=== PATIENT | male | born 1975 | race Caucasian/White ===

== ENCOUNTER 2021-02-16 09:33 | Emergency (ER) | payer OTHER ==
--- NOTE | 2021-02-16 11:05 | EDM.PDOC ---
ED HPI GENERAL MEDICAL PROBLEM - General Chief Complaint: Lower Extremity Injury/Pain Stated Complaint: RT KNEE PAIN Time Seen by Provider: 02/16/21 10:50 Source of Information: Reports: Patient History Limitations: Reports: No Limitations - History of Present Illness INITIAL COMMENTS - FREE TEXT/NARRATIVE: 45 yo male with a remote hx of a R knee meniscal tear slipped at work on Sunday and now can't straight that knee fully due to swelling. Not able to work today so came to the ER. Does not have a primary care provider. Onset: Gradual Onset Date: 02/14/21 Duration: Day(s): (2), Getting Worse Location: Reports: Lower Extremity, Right Quality: Reports: Ache Severity: Moderate Improves with: Reports: Rest Worsens with: Reports: Movement (walking) Context: Reports: Trauma (see HPI) Associated Symptoms: Reports: No Other Symptoms - Related Data Allergies Allergy/AdvReac Type Severity Reaction Status Date / Time No Known Allergies Allergy Verified 02/16/21 10:32 Home Meds: Home Meds NK [No Known Home Meds] 02/16/21 [History] Past Medical History Musculoskeletal History: Reports: Arthritis - Infectious Disease History Infectious Disease History: Reports: None - Past Surgical History Head Surgeries/Procedures: Reports: None Musculoskeletal Surgical History: Reports: None Dermatological Surgical History: Reports: None Social & Family History - Tobacco Use Tobacco Use Status *Q: Current Every Day Tobacco User Years of Tobacco use: 25 Packs/Tins Daily: 0.5 Used Tobacco, but Quit: No Second Hand Smoke Exposure: No - Caffeine Use Caffeine Use: Reports: Coffee - Recreational Drug Use Recreational Drug Use: No Review of Systems - Review of Systems Review Of Systems: See Below Constitutional: Reports: No Symptoms Musculoskeletal: Reports: Joint Pain (R knee), Joint Swelling (R knee) Skin: Reports: No Symptoms Neurological: Reports: No Symptoms ED EXAM, GENERAL - Physical Exam Exam: See Below Exam Limited By: No Limitations General Appearance: Alert, WD/WN, No Apparent Distress Extremities: Pedal Edema (small effusion of R knee), Limited Range of Motion (unable to fully extend due to his effusion), Other (no ligamentous laxity). No: Increased Warmth, Redness Neurological: Alert, Oriented, CN II-XII Intact, Normal Cognition, No Motor/Sensory Deficits Psychiatric: Normal Affect, Normal Mood Skin Exam: Warm, Dry, Intact, Normal Color, No Rash Course - Vital Signs Last Recorded V/S: Last Vital Signs Temp 36.6 C 02/16/21 10:44 Pulse 89 02/16/21 10:44 Resp 17 02/16/21 10:44 BP 167/117 H 02/16/21 10:44 Pulse Ox 99 02/16/21 10:44 Departure - Departure Time of Disposition: 11:20 Disposition: Home, Self-Care 01 Condition: Good Clinical Impression: Right knee meniscal tear Qualifiers: Tear current or old: current Encounter type: initial encounter Meniscus of knee: medial Meniscus tear of knee type: unspecified type Qualified Code(s): S83.241A - Other tear of medial meniscus, current injury, right knee, initial encounter - Discharge Information *PRESCRIPTION DRUG MONITORING PROGRAM REVIEWED*: Not Applicable *COPY OF PRESCRIPTION DRUG MONITORING REPORT IN PATIENT NIRALI: Not Applicable Referrals: PCP,None [Primary Care Provider] - Additional Instructions: Use RODO at all times except when bathing. Use crutches to get around until cleared by orthopedics. F/U with Dr. Casey for further evaluation and tx. Take ibuprofen and/or acetaminophen as needed for pain relief. Sepsis Event Note (ED) - Focused Exam Vital Signs: Vital Signs Temp Pulse Resp BP Pulse Ox 02/16/21 10:44 36.6 C 89 17 167/117 H 99
== END 2021-02-16 11:23 | disposition home or self-care (01) ==
LOC: JP.ED 09:33
DX: S83.241A Other tear of medial meniscus, current injury, right knee, initial encounter (principal); Z72.0 Tobacco use; W18.40XA Slipping, tripping and stumbling without falling, unspecified, initial encounter; Y99.0 Civilian activity done for income or pay
CPT/HCPCS: 99283